=== PATIENT | male | born 1965 | race Caucasian/White ===

== ENCOUNTER 2018-05-14 07:45 | Inpatient (IN) | payer MEDICAID, OTHER ==
[~2018-05-14] VITALS: Ht 182.9 cm; Wt 73.2 kg
--- NOTE | 2018-05-14 07:47 | NUR ---
RT PAGED FOR CODE 3 ARRIVAL 2052; RT PRESENT ON ARRIVAL.
[2018-05-14] MEDS ORDERED: normal saline 1000ML IV soln IV ONE (07:50)
[2018-05-14] MEDS ORDERED: LORazepam 2 mg/ml vial IV ONE ×2 (08:20→09:10)
--- NOTE | 2018-05-14 08:29 | NUR ---
Poison control contacted. Patient overdosed on approximately 150 Tegretol. Recommendations Bicarb for potential QRS widening, Propofol and benzos for seizures, Serial tegratol levels Q2 hours. Possible dialysis.
[2018-05-14 08:37] LABS: URINE AMPHETAMINE SCREEN NEGATIVE (Neg); URINE BARBITUATE SCREEN NEGATIVE (Neg); URINE BENZODIAZEPINES SCREEN NEGATIVE (Neg); URINE CANNABINOID SCREEN NEGATIVE (Neg); URINE COCAINE SCREEN NEGATIVE (Neg); URINE METHADONE SCREEN NEGATIVE (Neg); URINE OPIATE SCREEN NEGATIVE (Neg); URINE PHENCYCLIDINE SCREEN NEGATIVE (Neg)
[2018-05-14 08:41] LABS: ABG HCO3 24.2 mmol/L (22.0-26.0); ABG OXYGEN SATURATION 95.8 % (95-98); ABG PCO2 (T) 42.2 mmHg (35.0-48.0); ABG PH (T) 7.377 (7.350-7.450); ABG PO2 (T) 81.4 mmHg (83-108); ALLEN'S TEST Positive; FCOHb 0.8 % (0.5-1.5); FMetHb 0.3 % (0.3-1.12); FO2Hb 94.7 % (94-100); TOTAL HEMOGLOBIN 14.3 G/dl (14.0-18.0)
[2018-05-14 08:42] LABS: CLARITY,URINE CLOUDY (Clear); COLOR,URINE YELLOW (Yellow); GLUCOSE, URINE NEGATIVE (Neg); KETONES,URINE 15 mg/dl (Neg); LEUKOCYTE ESTERASE ,URINE NEGATIVE (Neg); NITRITES, URINE NEGATIVE (Neg); OCCULT BLOOD,URINE TRACE-INTACT (Neg); PROTEIN,URINE 100 mg/dl (Neg); UROBILINOGEN,URINE 0.2 E.U/dL (0.2-1.0)
[2018-05-14 08:46] LABS: UA COLLECTION TYPE FOLEY CATH
[2018-05-14 08:51] LABS: BACTERIA,URINE 1+ /HPF (Neg); CELLULAR CAST 0-4 /LPF (NEGATIVE); FINE GRANULAR CAST 0-3 /LPF (NEGATIVE); MUCUS STRANDS MODERATE /LPF (Neg); SQUAMOUS EPITHELIAL CELL,UR FEW /LPF (FEW); WBC,URINE 50-100 /HPF (0-4)
[2018-05-14] MEDS ORDERED: CefTRIAXone 2gm/D5W 50ml 50 ML IV ONE (09:00)
--- NOTE | 2018-05-14 09:04 | NUR ---
PAGED CT AT 0900
[2018-05-14 10:36] LABS: ALANINE AMINOTRANSFERASE 32 U/L (12-78); ALBUMIN 3.8 G/DL (3.4-5.0); ALBUMIN/GLOBULIN RATIO 1.3 (1.1-1.5); ALKALINE PHOSPHATASE 73 IU/L (46-116); ANION GAP 14 (8-16); ASPARTATE AMINO TRANSFERASE 36 U/L (10-37); BILIRUBIN,TOTAL 0.4 MG/DL (0.1-1.0); BLOOD UREA NITROGEN 20 MG/DL (7-18); BUN/CREATININE RATIO 31.3 (5.4-32.0); CALCIUM 7.8 MG/DL (8.5-10.1); CHLORIDE 105 MMOL/L (99-107); CREATININE 0.64 MG/DL (0.60-1.10); GLUCOSE 75 MG/DL (70-104); SODIUM 142 MMOL/L (135-145); TOTAL CARBON DIOXIDE 22.6 MMOL/L (24-32); TOTAL PROTEIN 6.8 G/DL (6.4-8.2); eGFR > 90 ML/MIN
[2018-05-14 10:40] LABS: BASOPHILS # (AUTO) 0.1 X10'3 (0-0.2); BASOPHILS % (AUTO) 0.2 % (0-1); EOSINOPHILS # (AUTO) 0.3 X10'3 (0-0.9); EOSINOPHILS % (AUTO) 1.3 % (0-6); HEMATOCRIT 43.1 % (42.0-52.0); HEMOGLOBIN 14.6 g/dl (14.0-17.9); LYMPHOCYTES # (AUTO) 0.8 X10'3 (1.1-4.8); LYMPHOCYTES % (AUTO) 3.1 % (21-51); MEAN CORPUSCULAR HGB CONC 33.8 % (33.0-36.5); MEAN CORPUSCULAR VOLUME 94.5 FL (78-98); MEAN PLATELET VOLUME 8.6 FL (7.4-10.4); MONOCYTES # (AUTO) 0.9 X10'3 (0-0.9); MONOCYTES % (AUTO) 3.6 % (2-12); NEUTROPHILS # (AUTO) 23.4 X10'3 (1.8-7.7); NEUTROPHILS % (AUTO) 91.8 % (42-75); PLATELET COUNT 275 X10'3 (140-440); RED BLOOD COUNT 4.56 X10'6 (4.70-6.10); RED CELL DISTRIBUTION WIDTH 12.4 % (11.5-14.5)
[2018-05-14 10:43] LABS: ETHANOL < 0.010 GM/DL (0.0-0.010); MAGNESIUM 1.9 MG/DL (1.5-2.4)
[2018-05-14 10:44] LABS: WHITE BLOOD COUNT 25.5 X10'3 (4.5-11.0)
[2018-05-14 10:45] LABS: ACETAMINOPHEN < 2.0 UG/ML (10-30); POTASSIUM 3.4 MMOL/L (3.5-5.1)
[2018-05-14 10:56] LABS: PLATELET ESTIMATE NORMAL; TOTAL CELLS COUNTED 100
[2018-05-14 11:27] LABS: CARBAMAZEPINE (TEGRETOL) 54.6 UG/ML (4.0-12.0)
[2018-05-14 11:35] LABS: INR 1.1 INR; PARTIAL THROMBOPLASTIN TIME 26 SECONDS (22-32); PROTHROMBIN TIME 11.5 SECONDS (9.0-12.0)
[2018-05-14] MEDS ORDERED: dextrose 50%-water 50ml dispensing syringe IV ONE ×2 (11:46→21:44)
--- NOTE | 2018-05-14 12:16 | NUR ---
UPDATED POISON CONTRL AND RECCOMENDED EKG AND TEGRETOL SERIAL LABS. WITH SODIUM BICARB IF QRS > 120
[2018-05-14] MEDS ORDERED: propofol 1000mg/100ml bottle 100 ML IV ONE (12:38)
[2018-05-14] MEDS ORDERED: propofol 1000mg/100ml bottle 100 ML IV PRN (12:41)
--- NOTE | 2018-05-14 12:42 | NUR ---
PAGED RT FOR INTUBATION 1170
[2018-05-14] MEDS ORDERED: propofol 10mg/ml 20ml vial IV ONE (12:45)
[2018-05-14] MEDS ORDERED: rocuronium 10mg/ml inj IV ONE (14:00)
[2018-05-14] MEDS ORDERED: morphine 4 MG/ML inj SYRINge IV PRN (15:05)
[2018-05-14] MEDS ORDERED: magnesium hydroxide 30ml (MOM) UD suspension PO PRN (15:05)
[2018-05-14] MEDS ORDERED: potassium Cl 20 mEq SR tablet PO PRN (15:05)
[2018-05-14] MEDS ORDERED: acetaminophen 325mg tablet PO PRN ×2 (15:05)
[2018-05-14] MEDS ORDERED: ondansetron/PF 4mg/2ml inj IV PRN (15:05)
[2018-05-14] MEDS: K, MAG and/or Phos replacement - Verify level? MC SCH (15:25)
--- NOTE | 2018-05-14 16:59 | NUR ---
seema from poison control called. carbamacepine to be rechecked, if any additional sz, cardiac toxicity, may recommend dialysis. watch mg and k for prolong qtc interval. call [phone] if symptoms worsen.
--- NOTE | 2018-05-14 17:52 | NUR ---
received patient to room 2009 from ER staff, patient is awake but, not answering questions, only mumbling. VS are 88 HR SR and BP is 164/66 sats are 97% on RA , skin assessment done with two RNS at the bedside and opatient has abrasions all over his body, especially on the forehead, hips and shoulders
[2018-05-14 18:00] VITALS: BP 164/66
--- NOTE | 2018-05-14 18:30 | NUR ---
Patient in room CICU 2009. I have received report from NOEMY Conn, and had the opportunity to ask questions and assume patient care.
--- NOTE | 2018-05-14 18:45 | NUR ---
Pt pulling arms against wrist restraints and pulling on indwelling catheter. Pt able to be redirected from pulling catheter, blood noted at urinary meatus. Pt mumbling incoherent speech and attempting to remove restraints and get self out of bed. Pt informed on current location and plan of care, pt relaxed back in bed and closed eyes. Pt unable to answer questions regarding self, date, time, location, or situation.
--- NOTE | 2018-05-14 18:55 | NUR ---
TAMIA Lugo, arrived to be pt's sitter. Currently at bedside. Pt occasionally pulling against restraints and mumbling incoherently.
[2018-05-14 19:00] VITALS: BP 173/99
[2018-05-14] MEDS: morphine 4 MG/ML inj SYRINge IV PRN (19:24)
--- NOTE | 2018-05-14 19:28 | NUR ---
Pt continues to pull at hubbard and VS monitoring equipment. Attempts to redirect pt verbally are becoming ineffective, pt now screaming incoherently and attempting to kick and bite at staff. Intermittently following commands at this time. BP increasing.
--- NOTE | 2018-05-14 19:44 | NUR ---
SHELLY Ibrahim, contacted regarding pt. Orders received for NS at 125 ml/hr, daily labs, and tegretol levels Q4H. Okay for pt to have mitt placed on right hand to prevent fulling of hubbard.
[2018-05-14 20:00] VITALS: BP 179/88
[2018-05-14 21:00] VITALS: BP 182/92
[2018-05-14] MEDS: normal saline 1000ml 1,000 ML IV SCH (21:37)
[2018-05-14 22:00] VITALS: BP 178/98
--- NOTE | 2018-05-14 22:00 | NUR ---
Wounds photographed and placed in chart.
[2018-05-14] MEDS: labetalol 20mg/4ml (5mg/ml) syringe IV PRN (22:05)
[2018-05-14 23:00] VITALS: BP 132/82
[2018-05-14] MEDS ORDERED: glucagon, human recombinant 1mg kit SUBCUT PRN (23:10)
[2018-05-14] MEDS ORDERED: dextrose ORAL solution 15 GM/59 ML bottle PO PRN ×2 (23:10)
[2018-05-14] MEDS ORDERED: dextrose 50%-water 50ml dispensing syringe IV PRN ×2 (23:10)
[2018-05-14 23:55] LABS: ALANINE AMINOTRANSFERASE 43 U/L (12-78); ALBUMIN 3.6 G/DL (3.4-5.0); ALBUMIN/GLOBULIN RATIO 1.2 (1.1-1.5); ALKALINE PHOSPHATASE 70 IU/L (46-116); ANION GAP 12 (8-16); ASPARTATE AMINO TRANSFERASE 68 U/L (10-37); BILIRUBIN,TOTAL 0.4 MG/DL (0.1-1.0); BLOOD UREA NITROGEN 16 MG/DL (7-18); CALCIUM 7.9 MG/DL (8.5-10.1); CHLORIDE 106 MMOL/L (99-107); GLUCOSE 72 MG/DL (70-104); POTASSIUM 3.5 MMOL/L (3.5-5.1); SODIUM 143 MMOL/L (135-145); TOTAL CARBON DIOXIDE 24.8 MMOL/L (24-32); TOTAL PROTEIN 6.5 G/DL (6.4-8.2); eGFR > 90 ML/MIN
[2018-05-15] VITALS (24 sets, daily range): BP systolic 102–167; BP diastolic 51–89
[2018-05-15 00:25] LABS: CARBAMAZEPINE (TEGRETOL) 30.5 UG/ML (4.0-12.0)
--- NOTE | 2018-05-15 02:45 | NUR ---
AM labs drawn and sent.
[2018-05-15] MEDS: normal saline 1000ml 1,000 ML IV SCH ×4 (02:56→21:17)
--- NOTE | 2018-05-15 03:20 | NUR ---
Rodriguez from lab called to report that CBC is clotted and will need to be redrawn.
[2018-05-15 03:27] LABS: INR 1.1 INR; PARTIAL THROMBOPLASTIN TIME 21 SECONDS (22-32); PROTHROMBIN TIME 11.2 SECONDS (9.0-12.0)
[2018-05-15 03:28] LABS: ALANINE AMINOTRANSFERASE 42 U/L (12-78); ALBUMIN 3.3 G/DL (3.4-5.0); ALBUMIN/GLOBULIN RATIO 1.2 (1.1-1.5); ALKALINE PHOSPHATASE 64 IU/L (46-116); ANION GAP 14 (8-16); ASPARTATE AMINO TRANSFERASE 61 U/L (10-37); BILIRUBIN,TOTAL 0.4 MG/DL (0.1-1.0); BLOOD UREA NITROGEN 16 MG/DL (7-18); BUN/CREATININE RATIO 20.8 (5.4-32.0); CALCIUM 7.8 MG/DL (8.5-10.1); CHLORIDE 107 MMOL/L (99-107); CREATININE 0.77 MG/DL (0.60-1.10); GLUCOSE 75 MG/DL (70-104); POTASSIUM 3.6 MMOL/L (3.5-5.1); SODIUM 143 MMOL/L (135-145); TOTAL CARBON DIOXIDE 22.4 MMOL/L (24-32); eGFR > 90 ML/MIN
[2018-05-15 03:46] LABS: MAGNESIUM 1.8 MG/DL (1.5-2.4); PHOSPHORUS 2.7 MG/DL (2.3-4.5)
--- NOTE | 2018-05-15 04:50 | NUR ---
Pt arouses to verbal stimuli, able to converse appropriately and with clear speech. Able to recall self, place, time, and situation. Pt admits that he "took too many tegretol" and states that this was a suicide attempt. Denies HI. Pt reporting head pain, given PRN Morphine.
[2018-05-15] MEDS: morphine 4 MG/ML inj SYRINge IV PRN (04:52)
--- NOTE | 2018-05-15 05:00 | NUR ---
Wrist and hand mitt restraints removed from pt. Pt now able to follow commands and not pull on lines or other equipment.
--- NOTE | 2018-05-15 05:00 | NUR ---
PIV's to LFA and RLE no longer working, able to flush with NS with some resistance, but unable to draw blood. IVF turned off at this time.
--- NOTE | 2018-05-15 05:55 | NUR ---
IV placement attempted x2 to RFA, able to obtain a few drops of blood but unable to thread catheter into veins. Pt states that his veins are difficult because he used to use IV drugs, states no longer uses them.
--- NOTE | 2018-05-15 06:20 | NUR ---
Patient in room CICU 2009. I have received report from NOEMY BURNS and had the opportunity to ask questions and assume patient care.
--- NOTE | 2018-05-15 06:35 | NUR ---
Problems reprioritized. Patient report given, questions answered & plan of care reviewed with NOEMY Ureña.
[2018-05-15] MEDS: K, MAG and/or Phos replacement - Verify level? MC SCH (07:34)
[2018-05-15 08:51] LABS: BASOPHILS % (AUTO) 0.3 % (0-1); EOSINOPHILS % (AUTO) 0.2 % (0-6); HEMATOCRIT 37.8 % (42.0-52.0); LYMPHOCYTES # (AUTO) 1.9 X10'3 (1.1-4.8); LYMPHOCYTES % (AUTO) 17.4 % (21-51); MEAN CORPUSCULAR HEMOGLOBIN 32.9 PG (27.0-31.0); MEAN CORPUSCULAR HGB CONC 34.3 % (33.0-36.5); MEAN CORPUSCULAR VOLUME 95.8 FL (78-98); MEAN PLATELET VOLUME 9.5 FL (7.4-10.4); MONOCYTES # (AUTO) 0.5 X10'3 (0-0.9); MONOCYTES % (AUTO) 4.9 % (2-12); NEUTROPHILS # (AUTO) 8.6 X10'3 (1.8-7.7); NEUTROPHILS % (AUTO) 77.2 % (42-75); PLATELET COUNT 254 X10'3 (140-440); RED BLOOD COUNT 3.94 X10'6 (4.70-6.10); RED CELL DISTRIBUTION WIDTH 12.1 % (11.5-14.5)
--- NOTE | 2018-05-15 10:31 | NUR ---
POISON CONTROL CALLED FOR CONDITION REPORT. NO NEW ORDERS OR SUGGESTIONS RECEIVED AT THIS TIME.
--- NOTE | 2018-05-15 16:19 | NUR ---
SS met with pt @ his bedside this afternoon, engaged pt in completing the [place] Suicide Severity Rating Scale to assess pt's current suicide risk. Per the rating scale pt present w/current suicidal ideation, with intention and a clear method for completing a suicide; pt would overdose on pills. In addition, acknowledged 4 prior attempts (including the incident that triggered this hospitalization episode). Three of these attempts had been overdosing, most recent was an overdose, the first attempt about 2 years ago was by cutting his wrist. Pt also endorses sxs associated with depression: hopelessness, worthlessness, helplessness, poor sleep & appetite, lost interest in activities he once enjoyed. Pt verbalized interest in receiving a MH Assessment to determine if treatment would be beneficial to him. However, psychotropic meds would need to be closely monitored. Summary: Pt experiences current suicidal ideation, with a specific plan and preferred method-overdosing. This has been going on for the past month. This indicates that pt is a high suicide risk, close supervision-especially when administering any medication- check to ensure that medications are appropriately taken by the pt, suicide precautions/protocol to continue, including the provision of a sitter. CICU nursing staff apprised of outcome of SS suicide risk assessment and recommendations above. Plan: SS to consult w/attending physician re possible telepsych/ assessment to determine if any psychotropics would be warranted. In the event that pt does not receive a psyc assessment, a suicide risk assessment will need to be completed prior to d/c to determine if [facility] 5150 eval is warranted. SS to continue to monitor and document pt's suicidality to facilitate a safe dcp.
[2018-05-15] MEDS ORDERED: CARB100T7 PO (16:33)
--- NOTE | 2018-05-15 17:20 | NUR ---
DR. AQUINO HERE TO ASSESS PATIENT. NEW ORDERS RECEIVED.
--- NOTE | 2018-05-15 18:00 | NUR ---
MEDICATED FOR PAIN. COELLO CATH REMOVED AND TOLERATED WELL. SERVED REGULAR DIET.
[2018-05-15] MEDS: nicotine 21mg patch - 24 hr TD SCH (18:01)
[2018-05-15] MEDS: traMADol 50MG tablet PO PRN (18:02)
--- NOTE | 2018-05-15 18:20 | NUR ---
Patient in room CICU 2009. I have received report from Adelita SALGUERO and had the opportunity to ask questions and assume patient care. Pt has sitter at bedside, IV fluids infusing via PIV, all monitoring alarms audible. Will continue to monitor.
[2018-05-16] VITALS (22 sets, daily range): BP systolic 135–174; BP diastolic 69–100
[2018-05-16] MEDS: normal saline 1000ml 1,000 ML IV SCH ×3 (05:15→20:31)
--- NOTE | 2018-05-16 05:17 | NUR ---
0505 bladder scan showing 563ml 0510 pt void via urinal 500ml post void bladder scan 0ml
--- NOTE | 2018-05-16 06:35 | NUR ---
Problems reprioritized. Patient report given, questions answered & plan of care reviewed with Petar SALGUERO.
--- NOTE | 2018-05-16 06:36 | NUR ---
Patient in room CICU 2009. I have received report from Rizwana SALGUERO and had the opportunity to ask questions and assume patient care. Patient sleeping, sitter is at the bedside. Will continue to monitor patient.
[2018-05-16] MEDS ORDERED: metoclopramide 5 mg/ml inj IV PRN (06:50)
[2018-05-16 07:30] LABS: ALANINE AMINOTRANSFERASE 38 U/L (12-78); ALBUMIN 2.8 G/DL (3.4-5.0); ALKALINE PHOSPHATASE 51 IU/L (46-116); ANION GAP 9 (8-16); ASPARTATE AMINO TRANSFERASE 33 U/L (10-37); BILIRUBIN,TOTAL 0.3 MG/DL (0.1-1.0); BLOOD UREA NITROGEN 10 MG/DL (7-18); BUN/CREATININE RATIO 16.1 (5.4-32.0); CALCIUM 7.6 MG/DL (8.5-10.1); CHLORIDE 108 MMOL/L (99-107); CREATININE 0.62 MG/DL (0.60-1.10); GLUCOSE 117 MG/DL (70-104); MAGNESIUM 1.8 MG/DL (1.5-2.4); PHOSPHORUS 1.7 MG/DL (2.3-4.5); POTASSIUM 3.1 MMOL/L (3.5-5.1); SODIUM 143 MMOL/L (135-145); TOTAL CARBON DIOXIDE 26.3 MMOL/L (24-32); TOTAL PROTEIN 5.6 G/DL (6.4-8.2); eGFR > 90 ML/MIN
[2018-05-16 07:43] LABS: PARTIAL THROMBOPLASTIN TIME 22 SECONDS (22-32); PROTHROMBIN TIME 10.1 SECONDS (9.0-12.0)
[2018-05-16 07:53] LABS: BASOPHILS # (AUTO) 0.2 X10'3 (0-0.2); BASOPHILS % (AUTO) 1.9 % (0-1); EOSINOPHILS # (AUTO) 0.1 X10'3 (0-0.9); EOSINOPHILS % (AUTO) 0.9 % (0-6); HEMATOCRIT 36.6 % (42.0-52.0); HEMOGLOBIN 12.3 g/dl (14.0-17.9); LYMPHOCYTES # (AUTO) 1.6 X10'3 (1.1-4.8); LYMPHOCYTES % (AUTO) 17.3 % (21-51); MEAN CORPUSCULAR HEMOGLOBIN 32.3 PG (27.0-31.0); MEAN CORPUSCULAR HGB CONC 33.6 % (33.0-36.5); MEAN CORPUSCULAR VOLUME 96.2 FL (78-98); MEAN PLATELET VOLUME 9.3 FL (7.4-10.4); MONOCYTES # (AUTO) 0.6 X10'3 (0-0.9); MONOCYTES % (AUTO) 6.7 % (2-12); NEUTROPHILS # (AUTO) 6.7 X10'3 (1.8-7.7); NEUTROPHILS % (AUTO) 73.2 % (42-75); PLATELET COUNT 218 X10'3 (140-440); RED CELL DISTRIBUTION WIDTH 11.8 % (11.5-14.5); WHITE BLOOD COUNT 9.2 X10'3 (4.5-11.0)
[2018-05-16] MEDS: K, MAG and/or Phos replacement - Verify level? MC SCH (08:00)
[2018-05-16] MEDS: potassium Cl 20 mEq SR tablet PO PRN (09:52)
[2018-05-16] MEDS: nicotine 21mg patch - 24 hr TD SCH (09:52)
[2018-05-16] MEDS: traMADol 50MG tablet PO PRN ×2 (09:58→19:31)
--- NOTE | 2018-05-16 12:21 | NUR ---
Behavioral health nurse came to evaluate patient, she stated that [facility] not consider him medically cleared with the low potassium level, at this time they will not accept him. She does think his risk for another suicide attempt is high and is confident he will be accepted after his labs are more stable. Her evaluation has been placed in the chart. Sitter is at the bedside, will continue to monitor patient. Addendum: 05/16/18 at 1226 by Virginia Martinez RN Potassium replacement was started this morning per protocol.
[2018-05-16] MEDS ORDERED: potassium Cl 40MEQ/NS 500ml 500 ML IV PRN (12:45)
[2018-05-16] MEDS: Neutra Phos packet PO PRN ×3 (13:35→18:01)
[2018-05-16] MEDS: labetalol 20mg/4ml (5mg/ml) syringe IV PRN (17:43)
--- NOTE | 2018-05-16 18:29 | NUR ---
Problems reprioritized. Patient report given, questions answered & plan of care reviewed with Olga SALGUERO.
--- NOTE | 2018-05-16 18:57 | NUR ---
Patient in room CICU 2009. I have received report from Petar SALGUERO and had the opportunity to ask questions and assume patient care.
[2018-05-16 20:02] LABS: PHOSPHORUS 2.3 MG/DL (2.3-4.5); POTASSIUM 3.4 MMOL/L (3.5-5.1)
[2018-05-16 20:04] LABS: CARBAMAZEPINE (TEGRETOL) 18.2 UG/ML (4.0-12.0)
--- NOTE | 2018-05-16 22:00 | NUR ---
Pt. transferred to PCU via WC w/o incidence. Sitter remains w/pt. at all times due to earlier verbal, suicide ideation. No verbalization of this ideation reported to this nurse. Seems in good spirits though affect is flat.
--- NOTE | 2018-05-17 01:15 | NUR ---
PO Potassium replacement started.
[2018-05-17] MEDS: potassium Cl 20 mEq SR tablet PO PRN ×4 (01:25→20:11)
[2018-05-17 02:00] VITALS: BP 146/79
[2018-05-17] MEDS: normal saline 1000ml 1,000 ML IV SCH (04:01)
[2018-05-17 06:00] VITALS: BP 181/114
--- NOTE | 2018-05-17 06:08 | NUR ---
Patient in room PCU 3018. I have received report from Olga SALGUERO and had the opportunity to ask questions and assume patient care.
[2018-05-17 06:09] LABS: BASOPHILS # (AUTO) 0.1 X10'3 (0-0.2); BASOPHILS % (AUTO) 0.7 % (0-1); EOSINOPHILS # (AUTO) 0.3 X10'3 (0-0.9); EOSINOPHILS % (AUTO) 3.2 % (0-6); HEMATOCRIT 35.4 % (42.0-52.0); HEMOGLOBIN 12.2 g/dl (14.0-17.9); LYMPHOCYTES # (AUTO) 2.1 X10'3 (1.1-4.8); LYMPHOCYTES % (AUTO) 23.2 % (21-51); MEAN CORPUSCULAR HGB CONC 34.5 % (33.0-36.5); MEAN CORPUSCULAR VOLUME 95.5 FL (78-98); MEAN PLATELET VOLUME 9.1 FL (7.4-10.4); MONOCYTES # (AUTO) 0.7 X10'3 (0-0.9); MONOCYTES % (AUTO) 7.3 % (2-12); NEUTROPHILS # (AUTO) 5.7 X10'3 (1.8-7.7); NEUTROPHILS % (AUTO) 65.6 % (42-75); PLATELET COUNT 223 X10'3 (140-440); RED BLOOD COUNT 3.71 X10'6 (4.70-6.10); RED CELL DISTRIBUTION WIDTH 11.7 % (11.5-14.5); WHITE BLOOD COUNT 8.9 X10'3 (4.5-11.0)
[2018-05-17 06:25] LABS: ALANINE AMINOTRANSFERASE 35 U/L (12-78); ALBUMIN 2.8 G/DL (3.4-5.0); ALKALINE PHOSPHATASE 58 IU/L (46-116); ANION GAP 7 (8-16); ASPARTATE AMINO TRANSFERASE 27 U/L (10-37); BILIRUBIN,TOTAL 0.3 MG/DL (0.1-1.0); BLOOD UREA NITROGEN 5 MG/DL (7-18); BUN/CREATININE RATIO 7.9 (5.4-32.0); CALCIUM 7.6 MG/DL (8.5-10.1); CHLORIDE 108 MMOL/L (99-107); CREATININE 0.63 MG/DL (0.60-1.10); GLUCOSE 123 MG/DL (70-104); MAGNESIUM 1.6 MG/DL (1.5-2.4); PHOSPHORUS 2.4 MG/DL (2.3-4.5); POTASSIUM 3.2 MMOL/L (3.5-5.1); SODIUM 142 MMOL/L (135-145); TOTAL PROTEIN 5.6 G/DL (6.4-8.2); eGFR > 90 ML/MIN
--- NOTE | 2018-05-17 06:30 | NUR ---
Problems reprioritized. Patient report given, questions answered & plan of care reviewed with Justine SALGUERO.
[2018-05-17 06:45] LABS: PARTIAL THROMBOPLASTIN TIME 26 SECONDS (22-32)
[2018-05-17] MEDS: nicotine 21mg patch - 24 hr TD SCH (07:24)
[2018-05-17] MEDS: K, MAG and/or Phos replacement - Verify level? MC SCH (08:00)
[2018-05-17] MEDS: traMADol 50MG tablet PO PRN ×3 (08:17→22:48)
[2018-05-17 11:00] VITALS: BP 158/93
[2018-05-17] MEDS ORDERED: potassium Cl 20 mEq SR tablet PO STA (11:10)
[2018-05-17] MEDS ORDERED: furosemide 40mg/4ml inj IV ONE (12:55)
[2018-05-17] MEDS: magnesium Cl slow-release 64mg tablet PO PRN ×2 (13:04→20:11)
--- NOTE | 2018-05-17 13:28 | NUR ---
Poison controlled caled and wanted to know lab results. NICOLE Esparza here and notified of what labs wanted to be done per poison controll. Tiara from [facility] called and asked about pt
[2018-05-17] MEDS ORDERED: potassium Cl 20 mEq SR tablet PO ONE (13:30)
[2018-05-17 13:57] LABS: CARBAMAZEPINE (TEGRETOL) 11.8 UG/ML (4.0-12.0)
[2018-05-17 15:00] VITALS: BP 154/84
[2018-05-17] MEDS ORDERED: calcium chloride inj. 1,000 MG in normal saline 100ml IV soln 90 ML IV ONE (16:00)
--- NOTE | 2018-05-17 18:00 | NUR ---
Patient in room PCU 3018. I have received report from NOEMY Fletcher and had the opportunity to ask questions and assume patient care. Pt resting comfortably in bed. Sitter at the bedside. Pt A&O. Requesting sandwich at 10pm. Pt is SL from IV fluids. K and Mag need replacement x1 each tonight. Tegretol per report should be checked Q6H. POC per report is sending pt to Behavioral unit 05/18.
--- NOTE | 2018-05-17 18:28 | NUR ---
Problems reprioritized. Patient report given, questions answered & plan of care reviewed with Edna SALGUERO.
[2018-05-17 19:00] VITALS: BP 154/85
--- NOTE | 2018-05-17 20:50 | NUR ---
Spoke with Brady from poison control. QTc was 416, last EKG showed NSR, continue K and Mag replacement until > 4.0 and 2.0 per poison control. Last Tegretol draw at 1930 sariah 10.5. Poison control would like at least 2 more draws to prove trending downward. Dr. Esparza per progress note already requests for Q6H while he is still hospitalized.
[2018-05-17 23:00] VITALS: BP 155/96
[2018-05-18 01:47] LABS: ALANINE AMINOTRANSFERASE 37 U/L (12-78); ALBUMIN 3.2 G/DL (3.4-5.0); ALKALINE PHOSPHATASE 65 IU/L (46-116); ANION GAP 7 (8-16); ASPARTATE AMINO TRANSFERASE 26 U/L (10-37); BASOPHILS # (AUTO) 0.1 X10'3 (0-0.2); BASOPHILS % (AUTO) 1.1 % (0-1); BILIRUBIN,TOTAL 0.3 MG/DL (0.1-1.0); BLOOD UREA NITROGEN 12 MG/DL (7-18); BUN/CREATININE RATIO 17.1 (5.4-32.0); CALCIUM 8.5 MG/DL (8.5-10.1); CARBAMAZEPINE (TEGRETOL) 9.6 UG/ML (4.0-12.0); CHLORIDE 105 MMOL/L (99-107); EOSINOPHILS # (AUTO) 0.4 X10'3 (0-0.9); EOSINOPHILS % (AUTO) 4.2 % (0-6); GLUCOSE 101 MG/DL (70-104); HEMATOCRIT 39.4 % (42.0-52.0); HEMOGLOBIN 13.4 g/dl (14.0-17.9); LYMPHOCYTES # (AUTO) 2.1 X10'3 (1.1-4.8); LYMPHOCYTES % (AUTO) 22.6 % (21-51); MAGNESIUM 1.8 MG/DL (1.5-2.4); MEAN CORPUSCULAR HEMOGLOBIN 32.3 PG (27.0-31.0); MEAN CORPUSCULAR HGB CONC 33.9 % (33.0-36.5); MEAN CORPUSCULAR VOLUME 95.3 FL (78-98); MEAN PLATELET VOLUME 9.2 FL (7.4-10.4); MONOCYTES # (AUTO) 0.6 X10'3 (0-0.9); MONOCYTES % (AUTO) 6.5 % (2-12); NEUTROPHILS % (AUTO) 65.6 % (42-75); PHOSPHORUS 4.1 MG/DL (2.3-4.5); PLATELET COUNT 283 X10'3 (140-440); POTASSIUM 3.9 MMOL/L (3.5-5.1); RED BLOOD COUNT 4.13 X10'6 (4.70-6.10); RED CELL DISTRIBUTION WIDTH 11.9 % (11.5-14.5); SODIUM 141 MMOL/L (135-145); TOTAL CARBON DIOXIDE 29.2 MMOL/L (24-32); TOTAL PROTEIN 6.4 G/DL (6.4-8.2); WHITE BLOOD COUNT 9.2 X10'3 (4.5-11.0); eGFR > 90 ML/MIN
[2018-05-18 02:34] LABS: PARTIAL THROMBOPLASTIN TIME 26 SECONDS (22-32); PROTHROMBIN TIME 9.7 SECONDS (9.0-12.0)
[2018-05-18 03:00] VITALS: BP 155/84
[2018-05-18 06:00] VITALS: BP 133/76
--- NOTE | 2018-05-18 06:50 | NUR ---
Problems reprioritized. Patient report given, questions answered & plan of care reviewed with Ben RN.
--- NOTE | 2018-05-18 07:07 | NUR ---
Patient in room PCU 3018. I have received report from NOEMY SINGH and had the opportunity to ask questions and assume patient care.
[2018-05-18] MEDS: K, MAG and/or Phos replacement - Verify level? MC SCH (08:00)
[2018-05-18] MEDS: traMADol 50MG tablet PO PRN ×2 (08:42→17:08)
[2018-05-18] MEDS: potassium Cl 20 mEq SR tablet PO SCH ×2 (08:43→17:09)
[2018-05-18] MEDS: nicotine 21mg patch - 24 hr TD SCH (08:44)
[2018-05-18 11:00] VITALS: BP 121/80
[2018-05-18 15:00] VITALS: BP 135/81
--- NOTE | 2018-05-18 15:28 | NUR ---
Initial: Pt admit s/p suicide attempt w/ tegrotol 4th attempt per MD note. PO 100% regular diet meeting needs. LBM 05/13 but pt refuses laxative per RN. Will continue to monitor. Rec: 1. continue regular diet 2. routine bowel care 3. wt per rx Addendum: 05/18/18 at [address] Amended: Links added.
--- NOTE | 2018-05-18 18:00 | NUR ---
Patient in room PCU 3018. I have received report from Ben SALGUERO and had the opportunity to ask questions and assume patient care. Pt is sitting up in bed. Alert and oriented. He is to go to [facility]. DC paperwork has been signed and completed. Meds have been picked up from pharmacy. 20 G in L UA has been removed. Tele box removed. Last set of VS: 90.7 T 86 HR 16 RR 98 O2 SAT ON RA 146/90 BP
--- NOTE | 2018-05-18 18:19 | NUR ---
Problems reprioritized. Patient report given, questions answered & plan of care reviewed with NOEMY SINGH.
--- NOTE | 2018-05-18 19:50 | NUR ---
Pt picked up by Phillip to send to [facility]. Aide JAMI has escorted both pt and Phillip to parking lot. DC papers have been sent with pt along with belongings. DC home meds have been given to Phillip to hold until arrival to [facility]. Original 5150 hold sent, copies have been made for chart.
--- NOTE | 2018-05-20 09:15 | NUR ---
Pt's been d/c'd to [facility] for MH treatment via 5150 eval. SS referral closed.
== END 2018-05-18 19:50 | DRG 812 ==
LOC: ER 07:47 → ED HOLD 15:03 → CICU 2S 17:50 → PCU 3S 05-16 21:53
PROVIDERS: ADMIT Internal Medicine Critical Care Medicine; ATTEND Internal Medicine Critical Care Medicine
DX: T42.1X2A Poisoning by iminostilbenes, intentional self-harm, initial encounter (principal); G92 Toxic encephalopathy; T68.XXXA Hypothermia, initial encounter; E87.2 Acidosis; N30.00 Acute cystitis without hematuria; S40.211A Abrasion of right shoulder, initial encounter; X58.XXXA Exposure to other specified factors, initial encounter; S40.212A Abrasion of left shoulder, initial encounter; S00.91XA Abrasion of unspecified part of head, initial encounter; Y92.89 Other specified places as the place of occurrence of the external cause; Y93.89 Activity, other specified; Y99.8 Other external cause status
CPT/HCPCS: 36415; 36600; 70450; 71045; 73020; 73501; 80053; 80156; 80305; 80320; 80329; 81001; 82803; 82948; 83605; 83735; 84100; 84132; 84145; 84443; 85018; 85025; 85610; 85730; 87040; 87088; 93005; 96361; 96365; 96375; 97110; 97161; 97530; 99291; G0378; J0696; J1940; J2060; J2270; J2405; J2704; J2765; J3480; J3490; J7030

== ENCOUNTER 2018-07-17 22:03 | Emergency (ER) | payer MEDICAID ==
[~2018-07-17] VITALS: Ht 188 cm; Wt 77.0 kg
[2018-07-17 22:05] VITALS: BP 139/79
[2018-07-17] MEDS ORDERED: METH500T PO (23:18)
[2018-07-17] MEDS ORDERED: acetaminophen 325mg tablet PO ONE (23:20)
== END 2018-07-17 23:43 | disposition home or self-care (01) ==
LOC: ER 22:04
DX: R10.31 Right lower quadrant pain (principal); M62.838 Other muscle spasm
CPT/HCPCS: 99283

== ENCOUNTER 2018-09-18 16:38 | Emergency (ER) | payer MEDICAID ==
[~2018-09-18] VITALS: Ht 180.3 cm; Wt 70.5 kg
[~2018-09-18 16:38] MED LIST: METH500T PO
[2018-09-18 19:24] LABS: BASOPHILS # (AUTO) 0.1 X10'3 (0-0.2); EOSINOPHILS # (AUTO) 0.2 X10'3 (0-0.9); HEMOGLOBIN 15.8 g/dl (14.0-17.9); LYMPHOCYTES # (AUTO) 2.6 X10'3 (1.1-4.8); MEAN PLATELET VOLUME 8.6 FL (7.4-10.4); MONOCYTES # (AUTO) 0.7 X10'3 (0-0.9); WHITE BLOOD COUNT 9.7 X10'3 (4.5-11.0)
[2018-09-18 19:26] LABS: BASOPHILS % (AUTO) 1.2 % (0-1); EOSINOPHILS % (AUTO) 1.7 % (0-6); HEMATOCRIT 46.5 % (42.0-52.0); LYMPHOCYTES % (AUTO) 26.4 % (21-51); MEAN CORPUSCULAR HGB CONC 33.9 g/dL (33.0-36.5); MEAN CORPUSCULAR VOLUME 94.4 FL (78-98); MONOCYTES % (AUTO) 7.2 % (2-12); NEUTROPHILS # (AUTO) 6.2 X10'3 (1.8-7.7); NEUTROPHILS % (AUTO) 63.5 % (42-75); PLATELET COUNT 270 X10'3 (140-440); RED BLOOD COUNT 4.93 X10'6 (4.70-6.10); RED CELL DISTRIBUTION WIDTH 13.2 % (11.5-14.5)
--- NOTE | 2018-09-18 19:50 | NUR ---
pt reminded that we need a urine sample. pt making attempt now to provide ua.
--- NOTE | 2018-09-18 20:00 | NUR ---
DR VALERIO UPDATED ON DELAY OF GETTING URINE FROM PT. PT REQUESTS MORE TIME AND IS CURRENTLY DRINKING WATER. OK WITH DELAY AT THIS TIME.
[2018-09-18 21:08] LABS: URINE AMPHETAMINE SCREEN NEGATIVE (Neg); URINE BARBITUATE SCREEN NEGATIVE (Neg); URINE BENZODIAZEPINES SCREEN NEGATIVE (Neg); URINE CANNABINOID SCREEN POSITIVE (Neg); URINE COCAINE SCREEN NEGATIVE (Neg); URINE METHADONE SCREEN NEGATIVE (Neg); URINE OPIATE SCREEN NEGATIVE (Neg); URINE PHENCYCLIDINE SCREEN NEGATIVE (Neg)
[2018-09-18 21:15] LABS: ALANINE AMINOTRANSFERASE 34 U/L (12-78); ALBUMIN 4.1 G/DL (3.4-5.0); ALBUMIN/GLOBULIN RATIO 1.2 (1.1-1.5); ALKALINE PHOSPHATASE 78 IU/L (46-116); ANION GAP 12 (8-16); ASPARTATE AMINO TRANSFERASE 20 U/L (10-37); BILIRUBIN,TOTAL 0.3 MG/DL (0.1-1.0); BLOOD UREA NITROGEN 20 MG/DL (7-18); BUN/CREATININE RATIO 22.7 (5.4-32.0); CHLORIDE 104 MMOL/L (99-107); CREATININE 0.88 MG/DL (0.60-1.10); GLUCOSE 88 MG/DL (70-104); POTASSIUM 3.8 MMOL/L (3.5-5.1); SODIUM 139 MMOL/L (135-145); TOTAL CARBON DIOXIDE 22.9 MMOL/L (24-32); TOTAL PROTEIN 7.4 G/DL (6.4-8.2); eGFR > 90 ML/MIN
[2018-09-18 21:16] LABS: ETHANOL < 0.010 GM/DL (0.0-0.010)
--- NOTE | 2018-09-18 22:02 | NUR ---
GIVE WARM BLANKETS. PT WITH NO NEEDS AT THIS TIME. PT FINISHED HIS DINNER. GIVEN PITCHER OF ICE WATER.
--- NOTE | 2018-09-19 00:30 | NUR ---
dr coughlin notified that pt having difficulty sleeping. verbal received for melatonin .
[2018-09-19] MEDS ORDERED: Melatonin 3mg tablet PO ONE (00:35)
[2018-09-19] MEDS ORDERED: FLUO20CA39 PO (05:59)
[2018-09-19] MEDS ORDERED: ARIP20TA4 PO (05:59)
[2018-09-19] MEDS ORDERED: CARB200T PO (05:59)
[2018-09-19] MEDS ORDERED: CLON-527 PO (05:59)
--- NOTE | 2018-09-19 11:08 | NUR ---
pt moved to OF bed 27, ambulated well with steady gate.
[2018-09-19] MEDS ORDERED: carBAMazepine Ext. Release 200 MG TAB.ER.12H PO SCH (12:00)
[2018-09-19] MEDS ORDERED: aripiprazole 5mg tablet PO SCH (12:00)
[2018-09-19] MEDS ORDERED: FLUoxetine 20mg capsule PO SCH (12:00)
--- NOTE | 2018-09-19 14:27 | NUR ---
pt is resting in bed quietly.
[2018-09-19] MEDS ORDERED: nicotine 7mg patch - 24hr TD SCH ×2 (15:40→15:41)
--- NOTE | 2018-09-19 16:07 | NUR ---
gave report to florin swan for possible placement, awaiting call back.
--- NOTE | 2018-09-19 16:30 | NUR ---
pt will be admitted to [facility] at approx 815pm today
[2018-09-19 20:32] VITALS: BP 127/75
[2018-09-19] MEDS ORDERED: Melatonin 3mg tablet PO SCH ×2 (21:00)
== END 2018-09-19 20:36 ==
LOC: ER 16:38
DX: F32.9 Major depressive disorder, single episode, unspecified (principal); F17.200 Nicotine dependence, unspecified, uncomplicated; Z88.8 Allergy status to other drugs, medicaments and biological substances; Z79.899 Other long term (current) drug therapy
CPT/HCPCS: 36415; 80053; 80305; 80320; 85025; 99285